=== PATIENT | male | born 1985 | race Caucasian/White ===

== ENCOUNTER 2022-10-05 05:25 | Emergency (ER) | payer OTHER, SELFPAY ==
[2022-10-05 05:26] VITALS: BP 135/91; PULSE 98; RESP 22; TEMP 36.2; O2SAT 100; BMI 22.4
[2022-10-05 05:30] VITALS: BP 135/91; PULSE 78; RESP 22; TEMP 36.2; O2SAT 100
--- NOTE | 2022-10-05 06:17 | EDS_ITS ---
HPI History of Present Illness Chief Complaint: Back Informant: patient and spouse/S.O. Onset/Context/Timing Onset: Hours Context: Gradual Onset Timing: Continuous and Intermittent Quality: Sharp Location: Lumbar Current Severity: Mild Maximum Severity: Moderate Worsened by: improves with Movement Relieved by: Remaining Still Associated Symptoms Associated Symptoms: Negative for Numbness, Tingling, Radiation to Right Leg, Radiation to Left Leg, Fever, Abdominal Pain, Dysuria, Unable to Ambulate, Unable to Transfer, Urinary Retention, Urinary Incontinence, Constipation or Fecal Incontinence Narrative Narrative: 37-year-old male changed out a hot water tank yesterday. Up the steps by himself with a gina. Since last night and today has been having lower back pain that comes and goes in waves. No prior back history of back surgery. No fever or chills. No bowel or bladder incontinence or retention. No radiation to his legs. No leg weakness or numbness. Prior similar symptoms: No Recent Illness/Hospitalization: No PFSH PFSH Medical History no medical history no medical history Home Medications metaxalone 800 mg tablet 800 mg PO TID PRN muscle pain 7 days #21 tabs 10/05/22 [Rx Last Taken Unknown] Allergy/AdvReac Type Severity Reaction Status Date / Time Penicillins [PCN] Allergy Hives Verified 10/05/22 05:32 Social History Smoking Status: Current every day smoker tobacco type: cigarettes ROS ROS ED ROS Narrative No recent illness. Lower back pain after lifting a hot water tank. Review of Systems ROS Unobtainable: Denies due to encephalopathy Constitutional Constitutional ED: Denies chills or fever(s) Eyes Eyes: Denies blurry vision ENT ENT ED: Denies ear pain Cardiovascular Cardiovascular: Denies chest pain or palpitations Respiratory/Chest Respiratory/Chest: Denies dyspnea Gastrointestinal Gastrointestinal: Denies abdominal pain Genitourinary Genitourinary ED: Denies dysuria or hematuria Musculoskeletal Musculoskeletal: Reports back pain; Denies arthralgias, myalgias or neck pain Integumentary Denies Abrasions Neurologic Neurologic: Denies headache(s) Psychiatric Psychiatric: Denies anxiety Endocrine Endocrinology: Denies cold intolerance Hematologic/Lymphatic Hematologic/Lymphatic: Denies easy bleeding Allergic/Immunologic Allergic/Immunologic ED: Denies mouth swelling or tongue swelling EXAM Physical Exam Narrative Exam Narrative: Well-appearing 37-year-old male. Vital signs stable afebrile. Lying flat on his back. Significant other in room. H EENT exam unremarkable atraumatic. Neck nontender no lymphadenopathy. Lungs clear to auscultation. Heart regular rhythm no murmur. Rate about 80. Chest wall and ribs nontender. Abdomen soft nontender. No peritoneal signs. Moving all 4 extremities. 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 5 out of 5 dorsi plantarflexion. No cauda equina or saddle anesthesia. Normal medial thigh sensation. Back he has reproducible lower paralumbar soft tissue tenderness. There is no ecchymosis or bruises. No redness or warmth. No spine tenderness. Neurologically is awake and alert with no focal motor deficits. Normal motor strength sensation both upper and lower extremities. Exam is consistent with lumbar strain and muscle spasm. Const Vital Signs: 10/05/22 05:26 10/05/22 05:30 Temperature 97.2 F L 97.2 F L Temperature Source Temporal Temporal Pulse Rate 98 78 Respiratory Rate 22 H 22 H Blood Pressure 135/91 H 135/91 H Blood Pressure Mean 105 105 Pulse Ox 100 100 Oxygen Delivery Method Room Air Room Air Positive well nourished and well developed; Negative for obese, cachectic, contractures or unkempt General Appearance ED: well developed and NAD; Negative for unkempt, cachectic, contractures or pallor Nutritional Appearance: Negative for cachectic or obese HEENT Reports moist mucous membranes; Denies dry mucous membranes Negative for trauma or tenderness Mouth ED: No dry mucous membranes Mouth: No dry mucous membranes Eyes PERRL and EOMs intact bilaterally General Eye ED: Negative for pale conjunctiva, scleral icterus or other Neck no lymphadenopathy, supple and no JVD General: Negative for tenderness Resp normal respiratory effort and clear to auscultation bilaterally Effort and Inspection: Negative for pain with movement Auscultation: Negative for rales, rhonchi or wheezes Cardio regular rate, regular rhythm, S1 normal heart sound, S2 normal heart sound and no murmurs Rate: Negative for bradycardia or tachycardic GI normal to inspection, nondistended, normoactive bowel sounds, soft to palpation, non-tender, non-distended and no masses Inspection: Negative for abdominal distention Palpation: Negative for tender or guarding Back/Spine normal to inspection; Negative for no thoracic nor lumbar tenderness Back/Spine Narrative: Reproducible tenderness paraspinal musculature of the lumbar spine. No ecchymosis or bruising.. No redness or warmth. No bone tenderness. General Back: Negative for CVA tenderness Cervical Spine: Negative for cervical spine tenderness and Negative for paracervical muscle tenderness Lumbar Spine / Lower Back: Negative for ROM limited Extremity normal to inspection and no clubbing, cyanosis or edema General Extremety ED: Negative for edema, tenderness or other findings General Extremity: Negative for edema or other findings Neuro oriented x3 and no sensory deficits noted Sensorium / Orientation: alert; Negative for confused, lethargic or stuporous Motor Exam: strength 5/5 throughout; Negative for strength abnormal Psych mental status grossly normal Appearance: Negative for unkempt Attitude: No agitated Mood & Affect: Negative for depressed, sad or tearful Skin no rashes or lesions noted and no wounds General Skin Exam: Negative for jaundice or pallor Lesions: No lesion noted Rashes: No rashes noted Trauma: Negative for abrasion or puncture Wounds: Negative for wounds noted MDM MDM MDM Narrative Medical decision making narrative: 37-year-old male back pain after lifting a hot water tank. History and exam are consistent with myofascial strain and spasm. Be given a dose of Skelaxin and Motrin here. He did not want any injections. Use Tylenol Motrin at home for pain and inflammation. Hot shower warm bath. Massage. Skelaxin 3 times daily for 1 week. Follow-up if not improving or return if worse. History & Record Review Discussion w/independent historian: Patient and Family Discharge Plan Triage Chief Complaint: Back ED Provider: Chucky Arroyo Dx/Rx/DC Orders Clinical Impression: Lumbosacral strain, Back spasm Instructions: ED Back Spasm, No Trauma, ED Muscle Spasm Prescriptions: New metaxalone 800 mg tablet 800 mg PO TID PRN (Reason: muscle pain) 7 Days Qty: 21 0RF Primary Care Provider: Care Physician,No Primary Referrals: Lewis Rees MD [Med Staff - Aerosol Supervisor] - 1 Week if not improving Care Physician,No Primary [Primary Care Provider] - Activity Restrictions/Additional Instructions: Hot shower, warm bath and whirlpool for your back. Massage. Motrin for pain and inflammation. Tylenol for pain. Skelaxin the muscle laxer and 1 pill 3 times a day for 1 week. Follow-up with a doctor if not improving. Return if a lot worse. No heavy lifting or exercise until pain-free for several days. Disposition Disposition: Home, Self Care
[2022-10-05] MEDS: Metaxalone 800 MG Tablet PO (06:45)
[2022-10-05] MEDS: Ibuprofen 400 MG Tablet 800 MG PO (06:45)
== END 2022-10-05 06:51 | disposition home or self-care (01) ==
PROVIDERS: Emergency Provider Emergency Medicine; Visit Provider Emergency Medicine
DX: S39.012A Strain of muscle, fascia and tendon of lower back, initial encounter (principal); F17.210 Nicotine dependence, cigarettes, uncomplicated; X50.0XXA Overexertion from strenuous movement or load, initial encounter
CPT/HCPCS: 99283